=== PATIENT | female | born 1995 | race Caucasian/White ===

== ENCOUNTER 2024-06-23 12:21 | Emergency (ER) | payer BC ==
[~2024-06-23] VITALS: Ht 162.6 cm; Wt 124.1 kg
[2024-06-23 12:30] VITALS: TEMP 97.4
[2024-06-23 14:09] VITALS: BP 145/70; PULSE 75
== END 2024-06-23 14:13 | disposition home or self-care (01) ==
LOC: COL.ER 12:21
DX: S93.602A Unspecified sprain of left foot, initial encounter (principal); X58.XXXA Exposure to other specified factors, initial encounter; Y93.01 Activity, walking, marching and hiking